=== PATIENT | male | born 1990 | race African-American/Black ===

== ENCOUNTER 2016-08-09 19:10 | Emergency (ER) | payer OTHER ==
[2016-08-09] MEDS ORDERED: ORPHENADRINE 30 MG/ML 2 ML VIAL IM STA (19:59)
[2016-08-09] MEDS ORDERED: KETOROLAC 60 MG/2 ML VIAL IM STA (19:59)
--- NOTE | 2016-08-09 20:06 | ED ---
General Adult HPI - General Chief complaint: Back Pain/Injury Stated complaint: Pain in back Time Seen by Provider: 08/09/16 19:33 Source: patient, RN notes reviewed Mode of arrival: ambulatory Limitations: no limitations - History of Present Illness Initial comments: This is a 26-year-old male who presents with chronic lower back pain. Patient states he has a history of herniated disc, and about every 6 months he gets a flareup of pain. Patient states he gets some radicular pain in the posterior right thigh only with walking. Patient states the back pain is only occurring when he is walking or standing up straight. Patient denies any numbness/ weakness/tingling. Patient states sitting and resting makes pain better. Patient has been taking 800 Motrin for the pain. Patient states this is the same back pain he always has. Patient denies any injury or fall. Patient denies any change in bowel or bladder function or lost sensation to the saddle area. Patient denies any recent fever, chills, shortness breath, chest pain, abdominal pain, nausea/vomiting/diarrhea, hematuria, headache, or visual changes , or any other complaints. - Related Data Previous Rx's Medication Instructions Recorded predniSONE 20 mg PO DAILY 3 Days 08/09/16 Allergies Allergy/AdvReac Type Severity Reaction Status Date / Time No Known Allergies Allergy Verified 08/09/16 19:48 Review of Systems ROS Statement: Those systems with pertinent positive or pertinent negative responses have been documented in the HPI. ROS Other: All systems not noted in ROS Statement are negative. Past Medical History Additional Past Medical History / Comment(s): Herniated Disk History of Any Multi-Drug Resistant Organisms: None Reported Past Surgical History: No Surgical Hx Reported Past Psychological History: No Psychological Hx Reported Smoking Status: Current every day smoker Past Alcohol Use History: None Reported Past Drug Use History: Marijuana General Exam - General Exam Comments Initial Comments: General: The patient is awake and alert, in no distress, and does not appear acutely ill. Neck: The neck is supple, there is no tenderness or JVD. No cervical midline tenderness to Cardiovascular: There is a regular rate and rhythm. No murmur, rub or gallop is appreciated. Respiratory: Lungs are clear to auscultation, respirations are non-labored, breath sounds are equal. No wheezes, stridor, rales, or rhonchi. Musculoskeletal: There is no tenderness of the cervical, thoracic or lumbar spinous processes. There is no tenderness of the paraspinal muscles of the back. Full range of motion, strength 5/5 and Sensation intact. Radial pulses 2 + bilaterally. Capillary refill is normal at less than 2 seconds. Neurological: A&O x 3. CN II-XII intact, There are no obvious motor or sensory deficits. Coordination appears grossly intact. Speech is normal. Skin: Skin is warm and dry and no rashes or lesions are noted. Psychiatric: Normal mood and affect. Limitations: no limitations Course Vital Signs 08/09/16 19:19 Temperature 98.6 F Pulse Rate 89 Respiratory 20 Rate Blood Pressure 142/63 O2 Sat by Pulse 98 Oximetry Medical Decision Making - Medical Decision Making This is a 26-year-old male who presents with chronic lower back pain symptoms. On physical exam patient is neurologically intact. There is no tenderness of the cervical, thoracic or lumbar spinous processes. There is no tenderness of the paraspinal muscles of the back. Full range of motion, strength 5/5 and Sensation intact. Radial pulses 2+ bilaterally. Capillary refill is normal at less than 2 seconds. Patient was offered an x-ray of the lumbar spine in the [facility] today, but patient refused. I discussed with patient that he could receive a shot of Toradol and Norflex in the [facility] today. I discussed that patient continue use of 800 Motrin. I discussed heating pads to the area. I discussed the patient will see a short prescription for prednisone. Discussed return parameters. Discussed the patient should follow-up with his primary care physician in one to 2 days or return to the [facility] for any worsening symptoms or for any further concerns. Patient was receptive to this plan. Patient will be discharged home. Disposition Clinical Impression: Chronic low back pain Disposition: HOME SELF-CARE Condition: Good Instructions: Chronic Back Pain (ED) Additional Instructions: Please use prednisone as prescribed. Please continue use of Motrin. Please use heating pads to the area. Please follow-up with family doctor in the next 2 days of symptoms have not improved. Please return to emergency room if the symptoms increase or worsen or for any other concerns. Prescriptions: predniSONE 20 mg PO DAILY 3 Days Time of Disposition: 20:04
[2016-08-09 20:28] VITALS: BP 109/66; PULSE 67; RESP 18; TEMP 98.2
== END 2016-08-09 20:28 | disposition home or self-care (01) ==
LOC: EC 19:10
DX: G89.29 Other chronic pain (principal); M54.5 Low back pain; F17.200 Nicotine dependence, unspecified, uncomplicated
CPT/HCPCS: 99283; 96372 ×2; J2360; J1885

== ENCOUNTER 2016-10-17 15:30 | Emergency (ER) | payer OTHER ==
[2016-10-17 15:49] VITALS: BP 126/64; PULSE 67; RESP 20; TEMP 98.2
[2016-10-17] MEDS ORDERED: predniSONE 20 MG TAB PO STA (16:05)
--- NOTE | 2016-10-17 16:08 | ED ---
Back Pain HPI - General Chief Complaint: Back Pain/Injury Stated Complaint: back pain Time Seen by Provider: 10/17/16 15:54 Source: patient, RN notes reviewed Limitations: no limitations - History of Present Illness Initial Comments: Patient is a 26-year-old male presents emergency room for evaluation of low back pain. Patient states he has a history of low back pain. Patient states that he was playing basketball yesterday and twisted the wrong way and felt a pinch in his left lower back. Patient states been taking ibuprofen at home with no relief of symptoms. Patient states pain is radiated down his legs. Patient denies saddle anesthesia. Patient denies urinary or fecal incontinence. Patient denies any numbness or tingling in his legs. Patient states pain is worse whenever he tries to stand straight. Patient denies any direct trauma or falls to his back. Patient denies any other injuries or complaints. - Related Data Home Medications Medication Instructions Recorded Confirmed Ibuprofen [Motrin] 800 - 1,600 mg PO Q8H PRN 10/17/16 10/17/16 Previous Rx's Medication Instructions Recorded predniSONE 40 mg PO DAILY 3 Days 10/17/16 Allergies Allergy/AdvReac Type Severity Reaction Status Date / Time No Known Allergies Allergy Verified 10/17/16 15:51 Review of Systems ROS Statement: Those systems with pertinent positive or pertinent negative responses have been documented in the HPI. ROS Other: All systems not noted in ROS Statement are negative. Past Medical History Additional Past Medical History / Comment(s): Herniated Disk History of Any Multi-Drug Resistant Organisms: None Reported Past Surgical History: No Surgical Hx Reported Past Psychological History: No Psychological Hx Reported Smoking Status: Current every day smoker Past Alcohol Use History: Occasional Past Drug Use History: Marijuana General Exam - General Exam Comments Initial Comments: Sitting on exam bed, no acute distress. Limitations: no limitations General appearance: alert, in no apparent distress Head exam: Present: atraumatic, normocephalic, normal inspection Eye exam: Present: normal appearance ENT exam: Present: normal exam Neck exam: Present: normal inspection Respiratory exam: Absent: respiratory distress Extremities exam: Present: normal inspection Back exam: Present: normal inspection, full ROM, paraspinal tenderness (Left- sided lumbosacral paraspinal tenderness). Absent: vertebral tenderness Neurological exam: Present: alert, oriented X3, CN II-XII intact, normal gait Psychiatric exam: Present: normal affect, normal mood Skin exam: Present: warm, dry, intact, normal color. Absent: rash Course Vital Signs 10/17/16 15:47 Temperature 98.2 F Pulse Rate 67 Respiratory 20 Rate Blood Pressure 126/64 O2 Sat by Pulse 98 Oximetry Medical Decision Making - Medical Decision Making Patient is a 26-year-old male presents emergency room for evaluation of acute on chronic low back pain. Patient has no neuro deficits. Will send patient home with prednisone advised follow up with his primary care provider. Patient states he understands everything that was discussed with him. Return parameters discussed. Case discussed Dr. Wakefield. Disposition Clinical Impression: Acute exacerbation of chronic low back pain Disposition: HOME SELF-CARE Condition: Good Instructions: Chronic Back Pain (ED), Acute Low Back Pain (ED) Additional Instructions: Alternate ice and heat. Take medications as directed. Please follow up with primary care provider in 1-2 days. If any new symptom arises or symptoms worsen , return to ER as soon as possible. Prescriptions: predniSONE 40 mg PO DAILY 3 Days Referrals: Sherlyn Minaya MD [Primary Care Provider] - 1-2 days Time of Disposition: 16:06
== END 2016-10-17 16:15 | disposition home or self-care (01) ==
LOC: EC 15:30
DX: G89.29 Other chronic pain (principal); M54.5 Low back pain; F17.200 Nicotine dependence, unspecified, uncomplicated; X50.1XXA Overexertion from prolonged static or awkward postures, initial encounter; Y93.67 Activity, basketball
CPT/HCPCS: 99283; J7512

== ENCOUNTER 2020-05-26 02:34 | Emergency (ER) | payer OTHER ==
--- NOTE | 2020-05-26 02:53 | ED ---
Headache HPI - General Chief Complaint: Headache Stated Complaint: Migraine Time Seen by Provider: 05/26/20 02:49 Source: RN notes reviewed, old records reviewed Mode of arrival: ambulatory Limitations: no limitations - History of Present Illness Initial Comments: This is a 30-year-old male with history of migraines coming in for migraine headache today. He said recent migraines billing up with his neurosurgeon 90 can get some sleep. No new traumas fevers. No neurological complaints mild nausea no vomiting positive for photophobia. No other new complaints he has no chronic medications takes her headache MD Complaint: headache, "migraine" -: hour(s) Onset Description: gradual Location: temporal Severity: severe Severity scale (1-10): 8 Quality: aching, throbbing Consistency: constant Improves With: nothing Worsens With: none Context: occurred at rest Associated Symptoms: nausea, photophobia, sensitivity to sound Treatments Prior to Arrival: none - Related Data Home Medications Medication Instructions Recorded Confirmed Ibuprofen [Motrin] 800 - 1,600 mg PO Q8H PRN 10/17/16 10/17/16 Previous Rx's Medication Instructions Recorded predniSONE [Deltasone] 40 mg PO DAILY 3 Days tab 10/17/16 Allergies Allergy/AdvReac Type Severity Reaction Status Date / Time No Known Allergies Allergy Verified 05/26/20 02:46 Review of Systems ROS Statement: Those systems with pertinent positive or pertinent negative responses have been documented in the HPI. ROS Other: All systems not noted in ROS Statement are negative. Past Medical History Past Medical History: No Reported History Additional Past Medical History / Comment(s): Herniated Disk History of Any Multi-Drug Resistant Organisms: None Reported Past Surgical History: No Surgical Hx Reported Past Psychological History: No Psychological Hx Reported Smoking Status: Never smoker Past Alcohol Use History: Occasional Past Drug Use History: Marijuana General Exam Limitations: no limitations General appearance: alert, in no apparent distress Head exam: Present: atraumatic, normocephalic, normal inspection Eye exam: Present: normal appearance, PERRL, EOMI. Absent: scleral icterus, conjunctival injection, periorbital swelling ENT exam: Present: normal exam, mucous membranes moist Neck exam: Present: normal inspection. Absent: tenderness, meningismus, lymphadenopathy Respiratory exam: Present: normal lung sounds bilaterally. Absent: respiratory distress, wheezes, rales, rhonchi, stridor Cardiovascular Exam: Present: regular rate, normal rhythm, normal heart sounds. Absent: systolic murmur, diastolic murmur, rubs, gallop, clicks GI/Abdominal exam: Present: soft, normal bowel sounds. Absent: distended, tenderness, guarding, rebound, rigid Extremities exam: Present: normal inspection, full ROM, normal capillary refill. Absent: tenderness, pedal edema, joint swelling, calf tenderness Back exam: Present: normal inspection Neurological exam: Present: alert, oriented X3, CN II-XII intact Psychiatric exam: Present: normal affect, normal mood Skin exam: Present: warm, dry, intact, normal color. Absent: rash Course Vital Signs 05/26/20 05/26/20 05/26/20 02:43 04:05 06:27 Temperature 98.7 F 98.1 F Pulse Rate 64 63 70 Respiratory 18 18 16 Rate Blood Pressure 152/86 131/83 110/67 O2 Sat by Pulse 98 100 100 Oximetry - Reevaluation(s) Reevaluation #1: Medical records reviewed Headache is now resolved Patient is asking for work note Medical Decision Making - Medical Decision Making 30 male DF for evaluation of migraine headache. Migraines resolved here in the ER patient can be discharged home Disposition Clinical Impression: Headache Disposition: HOME SELF-CARE Condition: Good Instructions (If sedation given, give patient instructions): Acute Headache (ED) Is patient prescribed a controlled substance at d/c from ED?: No Referrals: Sherlyn Minaya MD [Primary Care Provider] - 1-2 days
[2020-05-26] MEDS ORDERED: METOCLOPRAMIDE 5 MG/ML 2 ML VIAL IVP STA (03:31)
[2020-05-26] MEDS ORDERED: MORPHINE SULFATE 4 MG/ML SYRINGE IVP STA (03:31)
[2020-05-26] MEDS ORDERED: diphenhydrAMINE 50 MG/ML 1 ML VIAL IVP STA (03:31)
[2020-05-26] MEDS ORDERED: SODIUM CHLORIDE 0.9% 1,000 ML IV STA (03:31)
[2020-05-26] MEDS ORDERED: KETOROLAC 15 MG/ML 1 ML VIAL IVP STA (03:31)
[2020-05-26] MEDS ORDERED: methylPREDNISolone SOD SUCCI 125 MG/2 ML VIAL IV STA (03:31)
[2020-05-26] MEDS ORDERED: ORPHENADRINE 30 MG/ML 2 ML VIAL IVP STA (04:43)
[2020-05-26] MEDS ORDERED: ACET/COD 300 MG/30 MG STARTER PACK 6 TAB BTL PO STA (05:45)
[2020-05-26] MEDS ORDERED: IBUPROFEN 600 MG STARTER PACK 4 TAB BTL PO STA (05:45)
[2020-05-26 06:28] VITALS: BP 110/67; PULSE 70; RESP 16; TEMP 98.1
== END 2020-05-26 06:28 | disposition home or self-care (01) ==
LOC: EC 02:34
DX: G43.909 Migraine, unspecified, not intractable, without status migrainosus (principal)
CPT/HCPCS: 99283; 96374; 96375 ×4; 96361 ×3; J2270; J1200; J2765; J2930; J1885

== ENCOUNTER 2021-01-11 08:11 | Emergency (ER) | payer BC, OTHER ==
[2021-01-11 08:22] VITALS: BP 116/70; PULSE 69; RESP 18; TEMP 98
[2021-01-11] MEDS ORDERED: DEXAMETHASONE SOD PHOSPHATE 10 MG/ML 1 ML VIAL IM STA (09:05)
[2021-01-11] MEDS ORDERED: KETOROLAC 15 MG/ML 1 ML VIAL IM STA (09:05)
[2021-01-11] MEDS ORDERED: LIDOCAINE 5% PATCH TOPICAL STA (09:06)
--- NOTE | 2021-01-11 09:10 | ED ---
General Adult HPI - General Chief complaint: Back Pain/Injury Stated complaint: Back Pain Time Seen by Provider: 01/11/21 08:29 Source: patient Mode of arrival: ambulatory - History of Present Illness Initial comments: Dictation was produced using [employer] dictation software. please excuse any grammatical, word or spelling errors. Chief Complaint: 30-year-old male presents with right hip pain History of Present Illness: 30-year-old male he works as a [employer]. He does very exertional activity in a regular basis and lifting heavy objects. Her last couple days patient is developed right gluteal pain that radiates down the posterior leg. 2 weeks ago he injured his back and was on steroids. He states that he hasn't been on steroids for a week and a half. Since being off of steroids his hip pain develop. States that it's worse with standing. The ROS documented in this emergency department record has been reviewed and confirmed by me. Those systems with pertinent positive or negative responses have been documented in the HPI. All other systems are other negative and/or noncontributory. PHYSICAL EXAM: General Impression: Alert and oriented x3, acute distress secondary to pain HEENT: Normocephalic atraumatic, extra-ocular movements intact, pupils equal and reactive to light bilaterally, mucous membranes moist. Cardiovascular: Heart regular rate and rhythm Chest: Able to complete full sentences, no retractions, no tachypnea Abdomen: abdomen soft, non-tender, non-distended, no organomegaly Musculoskeletal: Pulses present and equal in all extremities, no peripheral edema, severe tenderness to palpation to the right piriformis area reproducing rating pain down the right posterior lower extremity Motor: no focal deficits noted Neurological: CN II-XII grossly intact, no focal motor or sensory deficits noted Skin: Intact with no visualized rashes Psych: Normal affect and mood ED course: 30-year-old male presents to the emergency department for clinical presentation consistent with sciatica. Vital Signs upon arrival are within acceptable limits. Patient given Dilaudid a patch, IM ketorolac and IM Decadron. Clinically patient sciatica symptoms arise from right piriformis area. Patient will be started on prednisone Dosepak. He is advised to rest. - Related Data Home Medications Medication Instructions Recorded Confirmed Ibuprofen [Motrin] 800 - 1,600 mg PO Q8H PRN 10/17/16 10/17/16 Previous Rx's Medication Instructions Recorded predniSONE [Deltasone] 40 mg PO DAILY 3 Days tab 10/17/16 Lidocaine 5% Patch [Lidoderm 5% 1 patch TOPICAL DAILY 4 Days #4 01/11/21 Patch] patch predniSONE 40 mg PO DAILY 4 Days #4 tab 01/11/21 Allergies Allergy/AdvReac Type Severity Reaction Status Date / Time No Known Allergies Allergy Verified 01/11/21 08:22 Review of Systems ROS Statement: Those systems with pertinent positive or pertinent negative responses have been documented in the HPI. ROS Other: All systems not noted in ROS Statement are negative. Past Medical History Past Medical History: No Reported History Additional Past Medical History / Comment(s): Herniated Disk History of Any Multi-Drug Resistant Organisms: None Reported Past Surgical History: No Surgical Hx Reported Past Psychological History: No Psychological Hx Reported Smoking Status: Former smoker Past Alcohol Use History: Occasional Past Drug Use History: Marijuana Course Vital Signs 01/11/21 08:19 Temperature 98 F Pulse Rate 69 Respiratory 18 Rate Blood Pressure 116/70 O2 Sat by Pulse 100 Oximetry Disposition Clinical Impression: Sciatica Disposition: HOME SELF-CARE Condition: Fair Instructions (If sedation given, give patient instructions): Sciatica (ED) Prescriptions: Lidocaine 5% Patch [Lidoderm 5% Patch] 1 patch TOPICAL DAILY 4 Days #4 patch predniSONE 40 mg PO DAILY 4 Days #4 tab Is patient prescribed a controlled substance at d/c from ED?: No Referrals: Sherlyn Minaya MD [Primary Care Provider] - 1-2 days
== END 2021-01-11 10:01 | disposition home or self-care (01) ==
LOC: EC 08:11
DX: M54.31 Sciatica, right side (principal); Z87.891 Personal history of nicotine dependence
CPT/HCPCS: 99283; 96372; J1100; J1885

== ENCOUNTER 2022-11-17 08:30 | Emergency (ER) | payer BC, OTHER ==
[2022-11-17 08:44] VITALS: TEMP 98.1
[2022-11-17] MEDS ORDERED: KETOROLAC 15 MG/ML 1 ML VIAL IM STA (09:20)
[2022-11-17] MEDS ORDERED: methylPREDNISolone SOD SUCCI 125 MG/2 ML VIAL IM STA (09:21)
--- NOTE | 2022-11-17 09:23 | ED ---
General Adult HPI - General Chief complaint: Back Pain/Injury Stated complaint: back pain Time Seen by Provider: 11/17/22 08:47 Source: patient Mode of arrival: ambulatory Limitations: no limitations - History of Present Illness Initial comments: 32-year-old male with a past medical history of lumbar herniated disc, migraines presents to the emergency room for a chief complaint of right leg pain. Patient states he is having a flareup of his sciatica. States it is a shooting pain that goes down to his foot and it is causing tingling. Patient states he tried to go to his primary care provider but they are no longer taking his insurance. He states lasting he had this he had a steroid shot which helped. He has seen pain management before but does not like having any procedures done through them. He has been taking Motrin and Tylenol for pain. Patient denies any bladder or bowel changes, saddle anesthesia, weakness of the legs. Patient has no other complaints at this time including shortness of breath, chest pain, abdominal pain, nausea or vomiting, headache, or visual changes. - Related Data Previous Rx's Medication Instructions Recorded Amoxicillin 875 mg PO Q12HR 10 Days #20 tablet 02/22/22 Fluticasone Propionate 220 Mcg 2 puff INHALATION RT-BID #12 gm 02/22/22 [Flovent 220 Mcg Inhaler] predniSONE 50 mg PO DAILY #5 tablet 11/17/22 Allergies Allergy/AdvReac Type Severity Reaction Status Date / Time No Known Allergies Allergy Verified 11/17/22 08:41 Review of Systems ROS Statement: Those systems with pertinent positive or pertinent negative responses have been documented in the HPI. ROS Other: All systems not noted in ROS Statement are negative. Past Medical History Past Medical History: No Reported History Additional Past Medical History / Comment(s): Herniated Disk, Migraines/cluster headaches History of Any Multi-Drug Resistant Organisms: None Reported Past Surgical History: No Surgical Hx Reported Past Psychological History: No Psychological Hx Reported Smoking Status: Former smoker Past Alcohol Use History: Occasional, Rare Past Drug Use History: Marijuana General Exam Limitations: no limitations General appearance: alert, in no apparent distress Head exam: Present: atraumatic Eye exam: Present: normal appearance, PERRL, EOMI. Absent: scleral icterus, conjunctival injection ENT exam: Present: normal exam, mucous membranes moist Neck exam: Present: normal inspection, full ROM. Absent: tenderness Respiratory exam: Absent: respiratory distress Extremities exam: Present: normal capillary refill (Capillary refill less than 2 seconds, DP pulse 2+ right lower extremity), other (Sensation intact, strength 5 out of 5 right lower extremity). Absent: tenderness (No tenderness in the right lower extremity), pedal edema, calf tenderness Course Vital Signs 11/17/22 08:41 Temperature 98.1 F Pulse Rate 77 Respiratory 18 Rate Blood Pressure 120/72 O2 Sat by Pulse 100 Oximetry Medical Decision Making - Medical Decision Making Was pt. sent in by a medical professional or institution (, PA, MANAGER [employer], urgent care, hospital, or shelter...) When possible be specific @ -No Did you speak to anyone other than the patient for history (EMS, parent, family, police, friend...)? What history was obtained from this source @ -No Did you review nursing and triage notes (agree or disagree)? Why? @ -I reviewed and agree with nursing and triage notes Were old charts reviewed (outside hosp., previous admission, EMS record, old EKG, old radiological studies, urgent care reports/EKG's, shelter records)? Report findings @ -No old charts were reviewed Differential Diagnosis (chest pain, altered mental status, abdominal pain women, abdominal pain men, vaginal bleeding, weakness, fever, dyspnea, syncope, headache, dizziness, GI bleed, back pain, seizure, CVA, palpatations, mental health)? @ -sciatica, mechanical back pain, ischemic limb EKG interpreted by me (3pts min.). @ -As above X-rays interpreted by me (1pt min.). @ -None done CT interpreted by me (1pt min.). @ -None done U/S interpreted by me (1pt. min.). @ -None done What testing was considered but not performed or refused? (CT, X-rays, U/S, labs)? Why? @ -None What meds were considered but not given or refused? Why? @ -None Did you discuss the management of the patient with other professionals (professionals i.e. , MARTA, MANAGER [employer], lab, RT, psych nurse, social media assistant, ep tech, teacher, human resource officer, hospice case manager)? Give summary @ -Dr Wakefield Was smoking cessation discussed for >3mins.? @ -No Was critical care preformed (if so, how long)? @ -No Were there social determinants of health that impacted care today? How? (Homelessness, low income, unemployed, alcoholism, drug addiction, transportation, low edu. Level, literacy, decrease access to med. care, prison, rehab)? @ -No Was there de-escalation of care discussed even if they declined (Discuss DNR or withdrawal of care, Hospice)? DNR status @ -No What co-morbidities impacted this encounter? (DM, HTN, Smoking, COPD, CAD, Cancer, CVA, ARF, Chemo, Hep., AIDS, mental health diagnosis, sleep apnea, morbid obesity)? @ -None Was patient admitted / discharged? Hospital course, mention meds given and route, prescriptions, significant lab abnormalities, going to OR and other pertinent info. @ -32-year-old male was seen today for right sciatic pain. Pain is chronic in nature but exacerbated today. Denies bladder or bowel changes, saddle anesthesia, weakness of the legs, or fevers. Patient is requesting steroid injection. Patient feeling better after Toradol and Solu-Medrol. Can't be discharged home. Undiagnosed new problem with uncertain prognosis? @ -No Drug Therapy requiring intensive monitoring for toxicity (Heparin, Nitro, Insulin, Cardizem)? @ -No Were any procedures done? @ -No Diagnosis/symptom? @ -right leg pain, paresthesia Acute, or Chronic, or Acute on Chronic? @ -acute on chronic Uncomplicated (without systemic symptoms) or Complicated (systemic symptoms)? @ -uncomplicated Side effects of treatment? @ -No Exacerbation, Progression, or Severe Exacerbation? @ -No Poses a threat to life or bodily function? How? (Chest pain, [place], [place], pneumonia, PE, COPD, DKA, ARF, appy, cholecystitis, CVA, Diverticulitis, Homicidal, Suicidal, threat to staff... and all critical care pts) @ -No Disposition Clinical Impression: Leg pain, Paresthesia, Sciatica Disposition: HOME SELF-CARE Condition: Good Instructions (If sedation given, give patient instructions): Sciatica (ED) Additional Instructions: Please take steroids during tomorrow. Follow-up with your doctor in one to 2 days. Return to the emergency room for any worsening symptoms. Do not take Motrin while taking the steroid. Make sure to eat something while taking the steroid. Prescriptions: predniSONE 50 mg PO DAILY #5 tablet Is patient prescribed a controlled substance at d/c from ED?: No Referrals: Valentino Kirby MD [STAFF PHYSICIAN] - 1-2 days Time of Disposition: 10:21
[2022-11-17 10:32] VITALS: BP 120/78; PULSE 74; RESP 16
== END 2022-11-17 10:32 | disposition home or self-care (01) ==
LOC: EC 08:30
DX: M54.31 Sciatica, right side (principal); R20.2 Paresthesia of skin; F12.90 Cannabis use, unspecified, uncomplicated; Z87.891 Personal history of nicotine dependence
CPT/HCPCS: 99283; 96372 ×2; J2930; J1885

== ENCOUNTER 2023-02-28 14:42 | Emergency (ER) | payer OTHER ==
[2023-02-28 15:18] VITALS: BP 129/71; PULSE 60; RESP 18; TEMP 98.6
--- NOTE | 2023-02-28 15:31 | ED ---
General Adult HPI - General Chief complaint: Wound/Laceration Stated complaint: IHS-Finger injury Source: patient Mode of arrival: ambulatory Limitations: no limitations - History of Present Illness Initial comments: A 33-year-old male presents to ED with a chief complaint of laceration. Patient states that his left hand got caught between 2 quarts slabs. Now notes pain of the hands and some lacerations to the hand. The injury at this time. No chest pain shortness breath. No other complaints. Patient's tetanus status up-to-date. - Related Data Previous Rx's Medication Instructions Recorded Amoxicillin 875 mg PO Q12HR 10 Days #20 tablet 02/22/22 Fluticasone Propionate 220 Mcg 2 puff INHALATION RT-BID #12 gm 02/22/22 [Flovent 220 Mcg Inhaler] predniSONE 50 mg PO DAILY #5 tablet 11/17/22 Allergies Allergy/AdvReac Type Severity Reaction Status Date / Time No Known Allergies Allergy Verified 02/28/23 15:18 Review of Systems ROS Statement: Those systems with pertinent positive or pertinent negative responses have been documented in the HPI. ROS Other: All systems not noted in ROS Statement are negative. Past Medical History Past Medical History: No Reported History Additional Past Medical History / Comment(s): Herniated Disk, Migraines/cluster headaches History of Any Multi-Drug Resistant Organisms: None Reported Past Surgical History: No Surgical Hx Reported Past Psychological History: No Psychological Hx Reported Smoking Status: Former smoker Past Alcohol Use History: Occasional, Rare Past Drug Use History: Marijuana General Exam Limitations: no limitations General appearance: alert, in no apparent distress Eye exam: Present: normal appearance Neck exam: Present: normal inspection Extremities exam: Present: normal inspection, other (Left hand bandaged. Full passive range of motion at the wrist and fingers however limited active range of motion secondary to pain.) Back exam: Present: normal inspection Psychiatric exam: Present: other Course Vital Signs 02/28/23 15:15 Temperature 98.6 F Pulse Rate 60 Respiratory 18 Rate Blood Pressure 129/71 O2 Sat by Pulse 99 Oximetry Procedures - Laceration Laceration #1 Indication: laceration Size (cm): 1 Description: linear Depth: simple, single layer Type of Sutures: other Patient Tolerated Procedure: well, no complications Additional Comments: 2 approximately 1 cm lacerations to his third and fourth digit. Laceration on the fourth digit superficial not requiring wound repair. Patient deferred stitches and instead asked for glue and Steri-Strips. Wound was irrigated and dried. Had wound repaired with glue and Steri-Strips as requested. Wounds were well approximated. Medical Decision Making - Medical Decision Making Was pt. sent in by a medical professional or institution (MARTA Phelan, FURNACE STOCK INSPECTOR, urgent care, hospital, or [facility]...) When possible be specific @ -No Did you speak to anyone other than the patient for history (EMS, parent, family, police, friend...)? What history was obtained from this source @ -No Did you review nursing and triage notes (agree or disagree)? Why? @ -I reviewed and agree with nursing and triage notes Were old charts reviewed (outside hosp., previous admission, EMS record, old EKG, old radiological studies, urgent care reports/EKG's, [facility] records)? Report findings @ -No old charts were reviewed Differential Diagnosis (chest pain, altered mental status, abdominal pain women, abdominal pain men, vaginal bleeding, weakness, fever, dyspnea, syncope, headache, dizziness, GI bleed, back pain, seizure, CVA, palpatations, mental health, musculoskeletal)? @ -Acute fracture, acute tendon injury, laceration. This not meant to be an all-inclusive list. EKG interpreted by me (3pts min.). @ -As above X-rays interpreted by me (1pt min.). @ -X-ray of the hand shows no acute fractures. CT interpreted by me (1pt min.). @ -None done U/S interpreted by me (1pt. min.). @ -None done What testing was considered but not performed or refused? (CT, X-rays, U/S, labs)? Why? @ -None What meds were considered but not given or refused? Why? @ -None Did you discuss the management of the patient with other professionals (professionals i.e. MARTA Phelan, FURNACE STOCK INSPECTOR, lab, RT, psych nurse, socially responsible investment adviser, guest experience captain, teacher, aerospace engineer officer armament, rehabilitation case coordinator)? Give summary @ -No Was smoking cessation discussed for >3mins.? @ -No Was critical care preformed (if so, how long)? @ -No Were there social determinants of health that impacted care today? How? (Homelessness, low income, unemployed, alcoholism, drug addiction, transportation, low edu. Level, literacy, decrease access to med. care, [facility], rehab)? @ -No Was there de-escalation of care discussed even if they declined (Discuss DNR or withdrawal of care, Hospice)? DNR status @ -No What co-morbidities impacted this encounter? (DM, HTN, Smoking, COPD, CAD, Cancer, CVA, ARF, Chemo, Hep., AIDS, mental health diagnosis, sleep apnea, morbid obesity)? @ -None Was patient admitted / discharged? Hospital course, mention meds given and route, prescriptions, significant lab abnormalities, going to OR and other pertinent info. @ -Discharge. Imaging here show no acute findings. Tetanus status is up-to-date. Patient had wound repaired with glue and Steri-Strips as requested by patient. Wounds were well approximated. Discharged home in stable condition. Discussed return precautions patient verbalizes agreement. Undiagnosed new problem with uncertain prognosis? @ -No Drug Therapy requiring intensive monitoring for toxicity (Heparin, Nitro, Insulin, Cardizem)? @ -No Were any procedures done? @ -No Diagnosis/symptom? @ -Left hand injury Acute, or Chronic, or Acute on Chronic? @ -Acute Uncomplicated (without systemic symptoms) or Complicated (systemic symptoms)? @ -Uncomplicated Side effects of treatment? @ -No Exacerbation, Progression, or Severe Exacerbation? @ -No Poses a threat to life or bodily function? How? (Chest pain, [place], [place], pneumonia, PE, COPD, DKA, ARF, appy, cholecystitis, CVA, Diverticulitis, Homicidal, Suicidal, threat to staff... and all critical care pts) @ -No Disposition Clinical Impression: Injury of left hand Disposition: HOME SELF-CARE Condition: Good Instructions (If sedation given, give patient instructions): Steristrips (ED) Additional Instructions: Please return to the Emergency Department if symptoms worsen or any other concerns. Monitor for evidence of infection. Is patient prescribed a controlled substance at d/c from ED?: No Referrals: None,Stated [Primary Care Provider] - 1-2 days Time of Disposition: 17:00
--- NOTE | 2023-02-28 16:16 | XR ---
EXAMINATION TYPE: XR hand complete LT DATE OF EXAM: 02/28/2023 CLINICAL HISTORY: pain TECHNIQUE: Frontal, lateral and oblique images of the left hand are obtained. COMPARISON: None. FINDINGS: There is no acute fracture/dislocation evident. The joint spaces appear within normal limi ts. The overlying soft tissue appears unremarkable. IMPRESSION: There is no acute fracture or dislocation. ICD 10 NO FRACTURE, INITIAL EVALUATION
== END 2023-02-28 17:40 | disposition home or self-care (01) ==
LOC: EC 14:42
DX: S61.213A Laceration without foreign body of left middle finger without damage to nail, initial encounter (principal); S61.215A Laceration without foreign body of left ring finger without damage to nail, initial encounter; F12.90 Cannabis use, unspecified, uncomplicated; Z87.891 Personal history of nicotine dependence; W23.0XXA Caught, crushed, jammed, or pinched between moving objects, initial encounter
CPT/HCPCS: 12001; 99283